=== PATIENT | male | born 1980 | race Caucasian/White ===

== ENCOUNTER 2019-10-15 17:28 | Emergency (ER) | payer BC, OTHER ==
[2019-10-15 17:35] VITALS: BP 133/77; PULSE 65
--- NOTE | 2019-10-15 17:53 | EDM.PDOC ---
ED HPI GENERAL MEDICAL PROBLEM - General Chief Complaint: Chest Pain Stated Complaint: CHEST PAIN Time Seen by Provider: 10/15/19 17:40 Source of Information: Reports: Patient History Limitations: Reports: No Limitations - History of Present Illness INITIAL COMMENTS - FREE TEXT/NARRATIVE: He presents to the emergency department for evaluation of chest pain. He states that for about 2 weeks he has had intermittent aching pain in the middle of his chest. Pain comes on without warning usually lasts a few minutes and then resolves. It is not associated with activity, position, eating, or anything else he has been able to tell. He usually has pain about once a day. He does not have any pain right now. He did have a more severe episode today which was his reason for coming into the emergency department. No associated shortness of breath, nausea, vomiting or sweats. No radiating pain. He is generally very active and does not have pain with activity. No significant family history of heart disease. No tobacco use. No diabetes. No hypertension. No history of coronary artery disease. He denies any other recent illness. No regular medications. He did try taking some antacids and [id number] omeprazole without any change. No history of previous similar problems. 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 Denies: Blood Pressure Problem, Dyspnea on Exertion, Lightheadedness, Palpitations, Syncope Endocrine: Denies: Fatigue GI/Abdominal: Denies: Abdominal Pain, Diarrhea, Nausea, Vomiting : Denies: Dysuria Musculoskeletal: Reports: No Symptoms Skin: Reports: No Symptoms Neurological: Denies: Confusion, Dizziness, Headache, Numbness Psychiatric: Denies: Agitation, Anxiety, Confusion Hematologic/Lymphatic: Reports: No Symptoms Immunologic: Reports: No Symptoms ED EXAM, GENERAL - Physical Exam Exam: See Below Exam Limited By: No Limitations General Appearance: Alert, WD/WN, No Apparent Distress Nose: Normal Inspection. No: Nasal Swelling Throat/Mouth: Normal Inspection, Normal Oropharynx Head: Atraumatic, Normocephalic Neck: Supple, Non-Tender, Full Range of Motion Respiratory/Chest: No Respiratory Distress, Lungs Clear, Normal Breath Sounds, Chest Non-Tender Cardiovascular: Regular Rate, Rhythm, No Edema, No Murmur GI/Abdominal: Normal Bowel Sounds, Soft, Non-Tender, No Mass Neurological: Alert, Oriented Psychiatric: Normal Affect, Normal Mood Skin Exam: Warm, Dry Lymphatic: No Adenopathy EKG INTERPRETATION Rhythm: NSR [place]: Normal P-Wave: Present QRS: Normal ST-T: Normal QT: Normal Course - Vital Signs Text/Narrative:: Discussed findings and the possible etiologies for his pain. I do not see evidence of cardiac etiology. Most likely reflux disease. Last Recorded V/S: Last Vital Signs Temp 36.6 C 10/15/19 17:29 Pulse 65 10/15/19 17:29 Resp 20 10/15/19 17:29 BP 133/77 10/15/19 17:29 Pulse Ox 98 10/15/19 17:29 - Orders/Labs/Meds Labs: Laboratory Tests 10/15/19 10/15/19 Range/Units 17:50 17:50 WBC 8.7 (4.0-10.2) K/uL RBC 4.60 (4.33-5.41) M/uL Hgb 14.3 (13.1-16.8) g/dL Hct 42.6 (39.0-49.0) % MCV 92.6 (84.0-98.0) fL MCH 31.1 (28.2-33.3) pg MCHC 33.6 (31.7-36.0) g/dL RDW 13.2 (11.2-14.1) % Plt Count 311 (150-350) K/uL Neut % (Auto) 47.3 (45.0-80.0) % Lymph % (Auto) 36.5 (10.0-50.0) % [place] % (Auto) 10.6 (2.0-14.0) % Eos % (Auto) 5.0 (0.0-5.0) % Baso % (Auto) 0.6 (0.0-2.0) % Neut # (Auto) 4.13 (1.40-7.00) K/uL Lymph # (Auto) 3.19 (0.50-3.50) K/uL [place] # (Auto) 0.93 (0.00-1.00) K/uL Eos # (Auto) 0.44 (0.00-0.50) K/uL Baso # (Auto) 0.05 (0.00-0.20) K/uL Sodium 139 (136-145) mmol/L Potassium 3.6 (3.5-5.1) mmol/L Chloride 102 (98-107) mmol/L Carbon Dioxide 29.4 (21.0-32.0) mmol/L BUN 13 (7-18) mg/dL Creatinine 0.79 (0.51-1.17) mg/dL Est Cr Clr Drug Dosing 147.07 mL/min Estimated GFR (MDRD) > 60 mL/min Glucose 91 (74-106) mg/dL Calcium 8.6 (8.5-10.1) mg/dL Total Bilirubin 0.6 (0.2-1.0) mg/dL AST 29 (15-37) U/L ALT 41 (12-78) U/L Alkaline Phosphatase 70 (46-116) IU/L Troponin I 0.000 (0.000-0.056) ng/mL Total Protein 7.0 (6.4-8.2) g/dL Albumin 3.6 (3.4-5.0) g/dL Departure - Departure Time of Disposition: 18:20 Disposition: Home, Self-Care 01 Clinical Impression: Chest pain, non-cardiac, Gastroesophageal reflux disease - Discharge Information Instructions: Food Choices for Gastroesophageal Reflux Disease, Adult, Gastroesophageal Reflux Disease, Adult, [id number] Forms: ED Department Discharge Additional Instructions: Omeprazole 20 mg daily. If symptoms persist, follow-up with primary physician. Sepsis Event Note (ED) - Evaluation Sepsis Screening Result: No Definite Risk - Focused Exam Vital Signs: Vital Signs Temp Pulse Resp BP Pulse Ox 10/15/19 17:29 36.6 C 65 20 133/77 98
[2019-10-15 18:13] LABS: CHLORIDE,CL 102 mmol/L (98-107); SODIUM,NA 139 mmol/L (136-145)
[2019-10-15] MEDS ORDERED: Ketorolac 30 MG/ML SDV IVPUSH SCH (19:00)
== END 2019-10-15 18:35 | disposition home or self-care (01) ==
LOC: LL.ED 17:28
DX: K21.9 Gastro-esophageal reflux disease without esophagitis (principal)
CPT/HCPCS: 36415; 80053; 84484; 85025; 99285-25

== ENCOUNTER 2020-11-30 12:46 | Emergency (ER) | payer BC, OTHER ==
[2020-11-30 13:20] VITALS: BP 123/82; PULSE 72
[2020-11-30] MEDS: Acetaminophen/HYDROcodone 325-10 MG Tab PO ONE (13:30)
[2020-11-30] MEDS: cefTRIAXone 1 GM Vial IM ONE (13:30)
--- NOTE | 2020-11-30 13:42 | EDM.PDOC ---
ED HPI GENERAL MEDICAL PROBLEM - General Chief Complaint: Skin Complaint Stated Complaint: left ankle pain/abrasions Time Seen by Provider: 11/30/20 13:12 Source of Information: Reports: Patient History Limitations: Reports: No Limitations - History of Present Illness INITIAL COMMENTS - FREE TEXT/NARRATIVE: Patient presents to the ED for left heel open sore. He has a history of trauma to this ankle and multiple surgery and skin grafting. Has been working at [employer] and wearing work boots. he states the boots have been rubbing him on the heel and it is getting red, draining, and is painful. Has not seen anyone else for this, has been working most days. Off today so came to the ED for evaluation. No recent antibiotics. no MRSA of this graft that he recalls. no SIRS criteria or fevers. Has been using moleskin and antibiotic ointment. Duration: Week(s):, Getting Worse Location: Reports: Lower Extremity, Left - Related Data Allergies Allergy/AdvReac Type Severity Reaction Status Date / Time No Known Allergies Allergy Verified 11/30/20 12:47 Home Meds: Home Meds Hydrocodone/Acetaminophen [HYDROcodone-Acetaminophen 5-325 MG] 1 each PO Q6H PRN #20 tab 11/30/20 [Rx] Sulfamethoxazole/Trimethoprim [Bactrim Ds Tablet] 1 each PO BID #20 tablet 11/30/20 [Rx] Past Medical History Cardiovascular History: Reports: Blood Clots/VTE/DVT Respiratory History: Reports: None Musculoskeletal History: Reports: Fracture, Neck Pain, Chronic Neurological History: Reports: Concussion, Head Trauma, Other (See Below) Other Neuro History: fractured C2 & C3 vertebrae Hematologic History: Reports: Blood Transfusion(s) Dermatologic History: Reports: None - Past Surgical History Cardiovascular Surgical History: Reports: None Respiratory Surgical History: Reports: None Neurological Surgical History: Reports: None Musculoskeletal Surgical History: Reports: Other (See Below) Other Musculoskeletal Surgeries/Procedures:: left ankle, foot, tib/fib, femur, elbow reconstruction Dermatological Surgical History: Reports: Skin Graft Social & Family History - Caffeine Use Caffeine Use: Reports: Coffee ED ROS GENERAL - Review of Systems Review Of Systems: Comprehensive ROS is negative, except as noted in HPI. Constitutional: Reports: No Symptoms HEENT: Reports: No Symptoms, Vertigo Cardiovascular: Reports: No Symptoms Endocrine: Reports: No Symptoms GI/Abdominal: Reports: No Symptoms : Reports: No Symptoms Musculoskeletal: Reports: Other (left ankle pain chronically, lack of rom) Skin: Reports: Wound (left heel area) Neurological: Reports: No Symptoms ED EXAM, SKIN/RASH Exam: See Below Exam Limited By: No Limitations General Appearance: Alert, WD/WN, No Apparent Distress Eye Exam: Bilateral Eye: EOMI, Normal Inspection, PERRL Ears: Normal External Exam Throat/Mouth: Normal Inspection, Normal Lips, Normal Voice, No Airway Compromise Head: Atraumatic Neck: Normal Inspection Respiratory/Chest: No Respiratory Distress, Lungs Clear Cardiovascular: Normal Peripheral Pulses, Regular Rate, Rhythm Extremities: Limited Range of Motion (left ankle chronically), Increased Warmth, Redness, Other (open area of 5 cm posterior heel at the achilles on the left, no active drainage, some erythema. Noted deformity from previous trauma and skin grafts. ) Neurological: Alert, Oriented, CN II-XII Intact, Normal Cognition Skin: Wound/Incision (see above) Course - Vital Signs Last Recorded V/S: Last Vital Signs Temp 36.8 C 11/30/20 12:49 Pulse 72 11/30/20 12:49 Resp 16 11/30/20 12:49 BP 123/82 11/30/20 12:49 Pulse Ox 98 11/30/20 12:49 - Orders/Labs/Meds Orders: Active Orders 24 hr Category Date Time Status Ankle 2V Lt [CR] Stat Exams 11/30/20 13:16 Taken CBC WITH AUTO DIFF [HEME] Stat Lab 11/30/20 13:29 Results SEDIMENTATION RATE AUTO [HEME] Stat Lab 11/30/20 13:29 Results Labs: Laboratory Tests 11/30/20 11/30/20 Range/Units 13:29 13:29 WBC 7.5 (4.0-10.2) K/uL RBC 4.61 (4.33-5.41) M/uL Hgb 14.4 (13.1-16.8) g/dL Hct 42.6 (39.0-49.0) % MCV 92.4 (84.0-98.0) fL MCH 31.2 (28.2-33.3) pg MCHC 33.8 (31.7-36.0) g/dL RDW 12.7 (11.2-14.1) % Plt Count 332 (150-350) K/uL Neut % (Auto) 53.5 (45.0-80.0) % Lymph % (Auto) 33.2 (10.0-50.0) % [place] % (Auto) 8.8 (2.0-14.0) % Eos % (Auto) 4.0 (0.0-5.0) % Baso % (Auto) 0.5 (0.0-2.0) % Neut # (Auto) 4.02 (1.40-7.00) K/uL Lymph # (Auto) 2.49 (0.50-3.50) K/uL [place] # (Auto) 0.66 (0.00-1.00) K/uL Eos # (Auto) 0.30 (0.00-0.50) K/uL Baso # (Auto) 0.04 (0.00-0.20) K/uL Sodium 142 (136-145) mmol/L Potassium 4.1 (3.5-5.1) mmol/L Chloride 104 (98-107) mmol/L Carbon Dioxide 29.1 (21.0-32.0) mmol/L Anion Gap 8.9 (7-15) meq/L BUN 13 (7-18) mg/dL Creatinine 0.76 (0.51-1.17) mg/dL Est Cr Clr Drug Dosing 143.10 mL/min Estimated GFR (MDRD) > 60 mL/min Glucose 89 (70-99) mg/dL Calcium 8.9 (8.5-10.1) mg/dL Total Bilirubin 0.7 (0.2-1.0) mg/dL AST 23 (15-37) U/L ALT 41 (12-78) U/L Alkaline Phosphatase 71 (46-116) IU/L C-Reactive Protein 2.3 H (<=0.9) mg/dL Total Protein 7.3 (6.4-8.2) g/dL Albumin 3.8 (3.4-5.0) g/dL Meds: Medications Discontinued Medications Generic Name Dose Route Start Last Admin Trade Name Freq PRN Reason Stop Dose Admin Hydrocodone Bitart/Acetaminophen 1 tab 11/30/20 13:16 11/30/20 13:30 Acetaminophen/Hydrocodone 325-10 Mg Tab PO 11/30/20 13:17 1 tab ONETIME ONE Administration Ceftriaxone Sodium 1 gm 11/30/20 13:17 11/30/20 13:30 Ceftriaxone 1 Gm Vial IM 11/30/20 13:18 1 gm ONETIME ONE Administration Lidocaine HCl 2.1 ml 11/30/20 13:20 11/30/20 13:31 Lidocaine 1% 5 Ml Sdv INJECT 11/30/20 13:21 2.1 ml ONETIME ONE Administration - Radiology Interpretation Free Text/Narrative:: notable old fractures/ orif, arthritic changes on left ankle x-ray. No signs of osteomyelitis,. preliminary interpretation. official report pending - Re-Assessments/Exams Free Text/Narrative Re-Assessment/Exam: 11/30/20 13:49 will get baseline x-ray and labs. give injection or rocephin and start him on bactrim. Given hydrocodone here. will give a script for hydrocodone to fill tomorrow and a work note that he may need pain medication for this or altered foot wear. Needs to follow up with wound care in telephone for half-way cares. elevated c rp and sed rate, needs close follow up. 11/30/20 14:15 Departure - Departure Time of Disposition: 14:15 Disposition: Home, Self-Care 01 Clinical Impression: Wound cellulitis - Discharge Information *PRESCRIPTION DRUG MONITORING PROGRAM REVIEWED*: Yes *COPY OF PRESCRIPTION DRUG MONITORING REPORT IN PATIENT NADIA: Not Applicable Prescriptions: Sulfamethoxazole/Trimethoprim [Bactrim Ds Tablet] 1 each PO BID #20 tablet Hydrocodone/Acetaminophen [HYDROcodone-Acetaminophen 5-325 MG] 1 each PO Q6H PRN #20 tab PRN Reason: Pain (Moderate 4-6) Instructions: Cellulitis, Adult, [id number] Referrals: Claudia Walters PA [Primary Care Provider] - Forms: ED Department Discharge, ED Return to Work/School Form Additional Instructions: You were given an injection of antibiotics and pain medication here. Fill prescriptions for oral antibiotics and pain medication tomorrow. 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 Apply antibiotic ointment, telfa and moleskin. You are given a note for work that you have been given pain medication. 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 Sepsis Event Note (ED) - Evaluation Sepsis Screening Result: No Definite Risk - Focused Exam Vital Signs: Vital Signs Temp Pulse Resp BP Pulse Ox 11/30/20 12:49 36.8 C 72 16 123/82 98 - My Orders Last 24 Hours: My Active Orders 11/30/20 13:16 Ankle 2V Lt [CR] Stat 11/30/20 13:29 CBC WITH AUTO DIFF [HEME] Stat SEDIMENTATION RATE AUTO [HEME] Stat - Assessment/Plan Last 24 Hours: My Active Orders 11/30/20 13:16 Ankle 2V Lt [CR] Stat 11/30/20 13:29 CBC WITH AUTO DIFF [HEME] Stat SEDIMENTATION RATE AUTO [HEME] Stat
[2020-11-30 13:53] LABS: ANION GAP 8.9 meq/L (7-15); CHLORIDE,CL 104 mmol/L (98-107); SODIUM,NA 142 mmol/L (136-145)
== END 2020-11-30 14:40 | disposition home or self-care (01) ==
LOC: LL.ED 12:46
DX: L03.116 Cellulitis of left lower limb (principal); Z86.718 Personal history of other venous thrombosis and embolism
CPT/HCPCS: 36415; 73600-LT; 80053; 85025; 85652; 86140; 96372; 99283; 99283-25; A9270-GY; J0696

== ENCOUNTER 2021-02-18 19:01 | Emergency (ER) | payer OTHER ==
[2021-02-18] MEDS: Tetracaine HCl/PF 0.5% 4 ML Bottle EYERT ONE (19:47)
== END 2021-02-18 20:07 | disposition home or self-care (01) ==
LOC: LL.ED 19:01
DX: H54.7 Unspecified visual loss (principal)
CPT/HCPCS: 99283

== ENCOUNTER 2021-02-24 11:32 | Emergency (ER) | payer OTHER, BC | END 2021-02-24 13:05 | disposition home or self-care (01) | LOC: LL.ED 11:32 | DX: G97.1 Other reaction to spinal and lumbar puncture (principal); Z72.0 Tobacco use | CPT/HCPCS: 99283 ==

== ENCOUNTER 2021-04-29 00:11 | Emergency (ER) | payer OTHER, BC | END 2021-04-29 01:05 | disposition home or self-care (01) | LOC: LL.ED 00:11 | DX: R60.0 Localized edema (principal) | CPT/HCPCS: 99283 ==

== ENCOUNTER 2021-05-10 14:38 | Emergency (ER) | payer BC, OTHER | END 2021-05-10 15:17 | disposition home or self-care (01) | LOC: LL.ED 14:38 | DX: L97.321 Non-pressure chronic ulcer of left ankle limited to breakdown of skin (principal) | CPT/HCPCS: 99283 ==